=== PATIENT | female | born 1960 | race Caucasian/White ===

== ENCOUNTER 2016-10-02 04:08 | Observation (INO) | payer MEDICARE, OTHER ==
[2016-09-21 09:18] LABS: HEMATOCRIT 40.9 % (36.0-48.0); HEMOGLOBIN 13.7 g/dL (12.0-16.0)
[2016-09-21 09:31] LABS: BUN (BLOOD UREA NITROGEN) 19 MG/DL (6-23); CALCIUM, SERUM 8.7 MG/DL (8.5-10.4); CHLORIDE, SERUM 109 MMOL/L (96-112); CO2 (CARBON DIOXIDE) 25 MMOL/L (24-34); CREATININE 0.94 MG/DL (0.55-1.02); GFR AFRICAN AMERICAN 80 ML/MIN (>=60); GFR NON AFRICAN AMERICAN 69 ML/MIN (>=60); GLUCOSE, SERUM 78 MG/DL (60-99); POTASSIUM, SERUM 3.9 MMOL/L (3.5-5.3); SODIUM, SERUM 144 MMOL/L (135-148)
--- NOTE | ~2016-10-02 | OP ---
Record Of Operation [facility] [address] [place]. [address] NAME: ELLYN CABRERA : 64 STATUS : ADM [place] PAT#: [id number] AGE: 56 ADM/REG DATE : 10/02/16 MR#: [id number] REPORT SERV DATE: 10/03/16 DICTATED BY: CAITLIN BALES II DATE: 10/03/16 REPORT STATUS : Draft TRANSCRIBED BY: MODCorey DATE: 10/03/16 DATE OF PROCEDURE: 10/02/2016 PREOPERATIVE DIAGNOSES: 1. History of artificial lumbar disk replacement x2 (performed in [place]). 2. Low back pain with radiculitis, lower extremities. POSTOPERATIVE DIAGNOSES: 1. History of artificial lumbar disk replacement x2 (performed in [place]). 2. Low back pain with radiculitis, lower extremities. PROCEDURES: 1. Placement of a permanent spinal column stimulator thoracic lead via thoracic laminectomy. 2. Placement of battery generator. SURGEON: Caitlin Bales M.D. FLUIDS: 700 mL LR. ESTIMATED BLOOD LOSS: 25 mL. DRAINS: None. COMPLICATIONS: None. PREOPERATIVE HISTORY: This is a very friendly female, who did exceptionally well following a trial by Dr. Bullard. She presented for a permanent placement. We discussed the pros and cons of the surgery, as well as the risks. DESCRIPTION OF PROCEDURE: After informed consent was obtained, the patient was brought to the operating room at her request and general anesthesia was achieved. She was placed in the prone position and the back was prepped and draped in a sterile fashion. We initially performed an incision around the thoracolumbar junction in hopes that we could place percutaneous leads. Unfortunately, using the loss of resistance technique and placing the leads into the canal, we still could not acceptably place them in the midline as desired. At this point, I felt the best course of action was to go ahead and proceed with the thoracic laminectomy. A separate incision was made and the subperiosteal exposure was completed at approximately T11. The spinal cord was identified following a laminectomy. The laminectomy was performed using the high-speed bur and the Kerrison rongeurs and the curettes. The bipolar electrocautery was used for hemostasis followed by placement of the thoracic lead into the dorsal epidural space to overlie T8 and T9. A right-sided battery pocket was developed and the wires subcutaneously tunneled and Record Of Operation [facility] [facility] [id number] [facility] [place]. [address] NAME: ELLYN CABRERA : 64 STATUS : ADM [place] PAT#: [id number] AGE: 56 ADM/REG DATE : 10/02/16 MR#: [id number] REPORT SERV DATE: 10/03/16 DICTATED BY: CAITLIN BALES II DATE: 10/03/16 REPORT STATUS : Draft TRANSCRIBED BY: MODL DATE: 10/03/16 connected to the battery. The system was found to be functional. Copious irrigation was performed and standard closure performed, and the patient was then extubated and transferred to PACU in stable condition. JENNA/KATHI Caitlin Bales II, M.D. / [id number] CC: Elsa Roberts II, M.D.
[~2016-10-02 04:08] MED LIST: ASAB PO; CELEXA40 MG PO; CIP2 PO; ESTRACE VAGIN42.5 GM V; FLAGYL250 MG PO; FLUCON150 PO; KLONO5 PO; SYN.025B PO; TOPAMAX100 PO; TRAZ100 PO; ULTRAM50 PO; VITAMINS; ZOCOR20 PO
[2016-10-03] MEDS ORDERED: MSCONT15 PO (14:46)
[2016-10-03] MEDS ORDERED: V2 PO (14:50)
[2016-10-03] MEDS ORDERED: OXYCOD PO (14:52)
== END 2016-10-03 15:35 | disposition home or self-care (01) ==
LOC: SDC 04:08 → 3SO 11:10
PROVIDERS: Orthopaedic Surgery
PROC: 0JH70MZ Insertion of Stimulator Generator into Back Subcutaneous Tissue and Fascia, Open Approach (ICD-10-PCS; principal; 2016-10-02 05:45)
PROC: 00HU0MZ Insertion of Neurostimulator Lead into Spinal Canal, Open Approach (ICD-10-PCS; 2016-10-02 05:45)
DX: M54.16 Radiculopathy, lumbar region (principal); F41.9 Anxiety disorder, unspecified; F32.9 Major depressive disorder, single episode, unspecified; G43.909 Migraine, unspecified, not intractable, without status migrainosus; G89.29 Other chronic pain; M19.90 Unspecified osteoarthritis, unspecified site; E03.9 Hypothyroidism, unspecified; Z88.8 Allergy status to other drugs, medicaments and biological substances; Z91.041 Radiographic dye allergy status; Z98.1 Arthrodesis status; Z83.6 Family history of other diseases of the respiratory system; Z82.49 Family history of ischemic heart disease and other diseases of the circulatory system; Z83.3 Family history of diabetes mellitus; Z83.49 Family history of other endocrine, nutritional and metabolic diseases; Z79.2 Long term (current) use of antibiotics; Z79.899 Other long term (current) drug therapy; Z90.49 Acquired absence of other specified parts of digestive tract; Z90.710 Acquired absence of both cervix and uterus; Z98.41 Cataract extraction status, right eye; Z98.42 Cataract extraction status, left eye; Z98.890 Other specified postprocedural states
CPT/HCPCS: 80048; 82962; 85014; 85018; 88304; 88311; 93005; 96374; 96376; A9270-GY; C1769; C1778; C1820; G0378; J0690; J1030; J2250; J2270; J2405; J2710; J3010; J3370

== ENCOUNTER 2016-10-08 11:45 | Emergency (ER) | payer MEDICARE, OTHER ==
[~2016-10-08 11:45] MED LIST changes: +MSCONT15 PO; +OXYCOD PO; +V2 PO
[2016-10-08 12:27] LABS: BASOPHILS 0.6 %; BASOPHILS ABSOLUTE 0.03 10/3/uL (0.0-0.16); EOSINOPHILS 7.9 %; EOSINOPHILS ABSOLUTE 0.38 10/3/uL (0.0-0.53); ER CBC TAT 0 Hrs 12 Mins; IMMATURE GRANULOCYTES 0.2 %; IMMATURE GRANULOCYTES ABSOLUTE 0.01 10/3/uL (0.0-0.11); LYMPHOCYTES 47.2 %; LYMPHOCYTES ABSOLUTE 2.27 10/3/uL (0.67-4.30); MEAN CORPUS HGB CONC 32.8 g/dL (32.0-36.0); MEAN CORPUSCULAR HEMOGLOB 30.5 pg (26.0-34.0); MEAN CORPUSCULAR VOLUME 92.9 fL (80-100); MEAN PLATELET VOLUME 9.3 fL (9.2-13.0); MONOCYTES 7.7 %; MONOCYTES ABSOLUTE 0.37 10/3/uL (0.21-1.20); NEUTROPHILS 36.4 %; NEUTROPHILS ABSOLUTE 1.75 10/3/uL (2.02-8.40); PLATELET COUNT 270 10/3/uL (150-400); RBC DISTRIBUTION WIDTH 13.2 % (12.0-16.0); RED CELL COUNT 3.94 10/6/uL (4.0-5.6); WHITE BLOOD CELLS 4.8 10/3/uL (4.5-10.5)
[2016-10-08 12:29] LABS: HEMATOCRIT 36.6 % (36.0-48.0); INTERNATIONAL NORMAL RATI 1.1 UNITS (-); MANUAL DIFF NO %; PROTIME (NOT ORD) 13.8 SEC (12.0-14.5)
[2016-10-08 12:33] LABS: PARTIAL THROMBO TIME 26.4 SEC (22.5-37.2)
[2016-10-08 12:35] LABS: CALCIUM, SERUM 8.5 MG/DL (8.5-10.4); CHLORIDE, SERUM 110 MMOL/L (96-112); CO2 (CARBON DIOXIDE) 27 MMOL/L (24-34); GFR AFRICAN AMERICAN 84 ML/MIN (>=60); GFR NON AFRICAN AMERICAN 72 ML/MIN (>=60); POTASSIUM, SERUM 3.8 MMOL/L (3.5-5.3); SODIUM, SERUM 144 MMOL/L (135-148)
[2016-10-08 12:37] LABS: BUN (BLOOD UREA NITROGEN) 14 MG/DL (6-23); GLUCOSE, SERUM 110 MG/DL (60-99)
== END 2016-10-08 16:04 | disposition home or self-care (01) ==
LOC: ER 11:45
PROVIDERS: Physician Assistant
DX: M79.651 Pain in right thigh (principal); Z88.5 Allergy status to narcotic agent; Z79.82 Long term (current) use of aspirin; Z79.899 Other long term (current) drug therapy
CPT/HCPCS: 80048; 85025; 85610; 85730; 93005; 93971; 99284